=== PATIENT | female | born 1995 | race Asian ===

== ENCOUNTER 2022-11-07 23:27 | Outpatient (CLI) | payer OTHER ==
[~2022-11-07] VITALS: Ht 165.1 cm; Wt 99.7 kg
[2022-11-08 00:25] VITALS: BP 130/77; PULSE 78; TEMP 98
--- NOTE | 2022-11-08 00:25 | NUR ---
11/07/22 2330-Pt arrives ambulatory to unit with spouse with reports of decreased movement. 2343-Pt placed on monitors, denies any loss of fluid or vaginal bleeding, reports to this RN that they were at home and fetus was not moving as much as usual. She reports monitoring it for approx an hour before coming in. Pt and spouse informed by RN plan of care, that pt would be monitored for 20-30 minutes and if fetus looks good, RN will call the doctor on-call and discuss pt and status and get orders at that time. Pt and spouse verbalize understanding and questions answered.
== END 2022-11-08 01:00 | disposition home or self-care (01) ==
LOC: LDRO 23:27
DX: O36.8130 Decreased fetal movements, third trimester, not applicable or unspecified (principal); Z3A.30 30 weeks gestation of pregnancy

== ENCOUNTER 2022-12-29 17:37 | Outpatient (CLI) | payer OTHER ==
[~2022-12-29] VITALS: Ht 162.6 cm; Wt 105.9 kg
--- NOTE | 2022-12-29 17:50 | NUR ---
Pt arrived on unit ambulatory and with concerns with possible ROM. Pt reports feeling a gush of fluid a couple times this afternoon. Pt denies contractions or vaginal bleeding and reports normal movement. EFM and toco monitors started. Vital signs WNL. SVE by this RN closed/thick/high and negative amniotrace. Dr. Hugo notified.
[2022-12-29 18:40] VITALS: BP 138/89; PULSE 99; TEMP 97.9
--- NOTE | 2022-12-29 18:40 | NUR ---
Discharge instructions and follow up care reviewed pt and at the bedside. Both verbalized an understanding and agreed with the plan.
[2022-12-29] MEDS ORDERED: SYNTHROID0.05 MG/TA PO (18:51)
[2023-01-11] MEDS ORDERED: IBU600 MG PO (08:35)
== END 2022-12-29 18:50 | disposition home or self-care (01) ==
LOC: LDRO 17:37
DX: Z34.93 Encounter for supervision of normal pregnancy, unspecified, third trimester (principal); Z3A.37 37 weeks gestation of pregnancy